=== PATIENT | female | born 1950 | race Caucasian/White ===

== ENCOUNTER 2016-06-14 23:23 | Inpatient (IN) | payer MEDICARE ==
[2016-06-14 23:53] VITALS: BP 154/87
[2016-06-15] MEDS ORDERED: Potassium Chloride 20 mEq ER Tab PO ONE (00:03)
[2016-06-15] MEDS ORDERED: Maalox 30 mL Cup PO PRN (00:03)
[2016-06-15] MEDS ORDERED: Albuterol Nebulizer 2.5mg/3mL IH PRN (00:03)
[2016-06-15] MEDS ORDERED: Hydrocodone/APAP 5mg/325mg Tab PO PRN (00:03)
[2016-06-15] MEDS: D5-0.45NS 1,000 ML IV SCH ×2 (00:48→20:55)
[2016-06-15] MEDS: Morphine Sulfate 2 mg/mL 1mL Syr IVP PRN ×3 (05:46→16:18)
[2016-06-15 05:58] LABS: % BASOPHILS 0.4 % (0.0-2.0); % EOSINOPHILS 1.7 % (0.0-5.0); % LYMPHOCYTES 16.9 % (20.0-50.0); % MONOCYTES 13.6 % (2.0-10.0); % NEUTROPHILS 67.4 % (40.0-80.0); HEMATOCRIT 42.1 % (35.0-45.0); HEMOGLOBIN 14.3 gm/dL (11.7-16.1); MEAN CELL VOLUME 85.3 fl (81-100); MEAN PLATELET VOLUME 7.3 fl; NEUTROPHILE ABSOLUTE 4.4 Th/cmm (1.8-8.0); PLATELET COUNT 151 Th/cmm (150-400); RED BLOOD COUNT 4.93 Mil/cmm (3.80-5.20); RED CELL DISTRIBUTION WIDTH 12.5 % (11.5-20.0); WHITE BLOOD COUNT 6.5 Th/cmm (4.8-10.8)
[2016-06-15 06:07] LABS: INR 1.02 (0.5-1.4); PROTHROMBIN TIME (TEST) 10.1 SECONDS (9.5-11.5)
[2016-06-15 06:11] LABS: ALB/GLOB RATIO 1.2 (1.0-1.8); ALKALINE PHOSPHATASE 132 U/L (34-104); ANION GAP 10.9 (7.0-16.0); BILIRUBIN,TOTAL 0.9 mg/dL (0.3-1.0); BUN - UREA NITROGEN 11 mg/dL (7-25); CALCIUM SERUM 9.8 mg/dL (8.6-10.3); CARBON DIOXIDE 26.1 mEq/L (21.0-31.0); CHLORIDE 101 mEq/L (98-107); CREATININE - SERUM 0.5 mg/dL (0.6-1.2); GLUCOSE 239 mg/dL (70-105); MAGNESIUM 1.9 mg/dL (1.9-2.7); SGOT 36 U/L (13-39); SGPT/ALT 42 U/L (7-52); SODIUM SERUM 134 mEq/L (136-145)
[2016-06-15 06:29] LABS: BNP 39.1 pg/mL (5.0-100.0)
[2016-06-15] MEDS: INSULIN ASPART, RECOMBINANT 100 UNITS/ML SUBQ SCH ×4 (06:44→20:46)
[2016-06-15 07:55] LABS: URINE BILIRUBIN NEGATIVE (NEGATIVE); URINE BLOOD NEGATIVE (NEGATIVE); URINE COLOR YELLOW; URINE GLUCOSE (UA) 100 mg/dL (NEGATIVE); URINE KETONE TRACE mg/dL (NEGATIVE); URINE PROTEIN 30 mg/dL (NEGATIVE)
[2016-06-15 07:58] LABS: URINE BACTERIA NONE SEEN /hpf (NONE SEEN); URINE EPITHELIAL CELLS FEW /lpf (FEW); URINE RBC NONE SEEN /hpf (0-5); URINE WBC 0-2 /hpf (0-5)
[2016-06-15] MEDS: Levothyroxine 0.112 Mg Tab PO SCH (09:41)
--- NOTE | 2016-06-15 10:59 | Diagnostic Imaging Report ---
History: Dyspnea Findings: Heart size normal. Aorta is tortuous. No infiltrates or effusions. No destructive lesions of bone. Impression: No acute disease.
--- NOTE | 2016-06-15 14:53 | Internal Medicine Prog Note ---
Internal Medicine Subjective - Subjective Service Date: 06/15/16 ([facility] [id number]) Internal Medicine Objective - Results Result Diagrams: 06/15/16 05:15 06/15/16 05:15 Recent Labs: Laboratory Last Values WBC 6.5 Th/cmm (4.8-10.8) 06/15/16 05:15 RBC 4.93 Mil/cmm (3.80-5.20) 06/15/16 05:15 Hgb 14.3 gm/dL (11.7-16.1) 06/15/16 05:15 Hct 42.1 % (35.0-45.0) 06/15/16 05:15 MCV 85.3 fl (81-100) 06/15/16 05:15 MCH 29.0 pg (27.0-31.0) 06/15/16 05:15 MCHC Differential 34.0 pg (28.0-36.0) 06/15/16 05:15 RDW 12.5 % (11.5-20.0) 06/15/16 05:15 Plt Count 151 Th/cmm (150-400) 06/15/16 05:15 MPV 7.3 fl 06/15/16 05:15 Neutrophils % 67.4 % (40.0-80.0) 06/15/16 05:15 Lymphocytes % 16.9 % (20.0-50.0) L 06/15/16 05:15 Monocytes % 13.6 % (2.0-10.0) H 06/15/16 05:15 Eosinophils % 1.7 % (0.0-5.0) 06/15/16 05:15 Basophils % 0.4 % (0.0-2.0) 06/15/16 05:15 PT 10.1 SECONDS (9.5-11.5) 06/15/16 05:15 INR 1.02 (0.5-1.4) 06/15/16 05:15 PTT (Actin FS) 22.3 SECONDS (26.0-38.0) L 06/15/16 05:15 Sodium 134 mEq/L (136-145) L 06/15/16 05:15 Potassium 4.0 mEq/L (3.5-5.1) 06/15/16 05:15 Chloride 101 mEq/L (98-107) 06/15/16 05:15 Carbon Dioxide 26.1 mEq/L (21.0-31.0) 06/15/16 05:15 Anion Gap 10.9 (7.0-16.0) 06/15/16 05:15 BUN 11 mg/dL (7-25) 06/15/16 05:15 Creatinine 0.5 mg/dL (0.6-1.2) L 06/15/16 05:15 Est GFR ( Amer) > 60.0 ml/min (>90) 06/15/16 05:15 Est GFR (Non-Af Amer) > 60.0 ml/min 06/15/16 05:15 BUN/Creatinine Ratio 22.0 06/15/16 05:15 Glucose 239 mg/dL (70-105) H 06/15/16 05:15 POC Glucose 250 MG/DL (70 - 105) H 06/15/16 11:41 Hemoglobin A1c % 8.2 % (4.0-6.0) H 06/15/16 05:15 Calcium 9.8 mg/dL (8.6-10.3) 06/15/16 05:15 Magnesium 1.9 mg/dL (1.9-2.7) 06/15/16 05:15 Total Bilirubin 0.9 mg/dL (0.3-1.0) 06/15/16 05:15 AST 36 U/L (13-39) 06/15/16 05:15 ALT 42 U/L (7-52) 06/15/16 05:15 Alkaline Phosphatase 132 U/L (34-104) H 06/15/16 05:15 B-Natriuretic Peptide 39.1 pg/mL (5.0-100.0) 06/15/16 05:15 Total Protein 7.6 gm/dL (6.0-8.3) 06/15/16 05:15 Albumin 4.2 gm/dL (3.7-5.3) 06/15/16 05:15 Globulin 3.4 gm/dL 06/15/16 05:15 Albumin/Globulin Ratio 1.2 (1.0-1.8) 06/15/16 05:15 TSH 4.72 uIU/ml (0.34-5.60) 06/15/16 05:15 Urine Source CLEAN C 06/15/16 05:50 Urine Color YELLOW 06/15/16 05:50 Urine Clarity SL. CLOUDY (CLEAR) 06/15/16 05:50 Urine pH 6.0 06/15/16 05:50 Ur Specific [place] 1.025 (1.005-1.030) 06/15/16 05:50 Urine Protein 30 mg/dL (NEGATIVE) H 06/15/16 05:50 Urine Glucose (UA) 100 mg/dL (NEGATIVE) H 06/15/16 05:50 Urine Ketones TRACE mg/dL (NEGATIVE) 06/15/16 05:50 Urine Blood NEGATIVE (NEGATIVE) 06/15/16 05:50 Urine Nitrate NEGATIVE (NEGATIVE) 06/15/16 05:50 Urine Bilirubin NEGATIVE (NEGATIVE) 06/15/16 05:50 Urine Urobilinogen 1.0 E.U./dL (0.2 - 1.0) 06/15/16 05:50 Ur Leukocyte Esterase NEGATIVE (NEGATIVE) 06/15/16 05:50 Urine RBC NONE SEEN /hpf (0-5) 06/15/16 05:50 Urine WBC 0-2 /hpf (0-5) 06/15/16 05:50 Ur Epithelial Cells FEW /lpf (FEW) 06/15/16 05:50 Urine Bacteria NONE SEEN /hpf (NONE SEEN) 06/15/16 05:50 - Physical Exam Vitals and I&O: Vital Signs Temp 97.9 F 06/15/16 03:43 Pulse 94 06/15/16 09:42 Resp 20 06/15/16 07:48 BP 165/91 06/15/16 09:42 Pulse Ox 99 06/15/16 07:48 Intake & Output 06/14/16 06/15/16 06/15/16 18:59 06:59 18:59 Weight (lbs) 160 lb 3.2 oz Active Medications: Current Medications Acetaminophen (Tylenol) 650 mg PO Q4HR PRN PRN Reason: Pain or Fever >101 Stop: 08/14/16 00:02 Acetaminophen/Hydrocodone Bitart ([place] 5mg/325mg) 1 tab PO Q4H PRN PRN Reason: Pain (Severe) Stop: 08/14/16 00:02 Al Hydrox/Mg Hydrox/Simethicone (Maalox) 30 ml PO Q6HR PRN PRN Reason: Constipation Stop: 08/14/16 00:02 Albuterol Sulfate (Albuterol 2.5mg/3ml Neb Ud) 2.5 mg IH Q2HR PRN PRN Reason: Shortness of Breath or Wheeze Stop: 08/14/16 00:02 Benazepril HCl (Lotensin) 10 mg PO DAILY [facility] Stop: 08/14/16 08:59 Last Admin: 06/15/16 09:42 Dose: 10 mg Clonidine HCl (Catapres) 0.1 mg PO Q6HR PRN PRN Reason: SBP GREATER THAN 160 Stop: 08/14/16 00:02 Heparin Sodium (Porcine) (Heparin) 5,000 units SUBQ Q12HR ARACELI Stop: 08/14/16 08:59 Last Admin: 06/15/16 09:42 Dose: 5,000 units Dextrose/Sodium Chloride (D5-0.45ns) 1,000 mls @ 50 mls/hr IV .Q20H [facility] Stop: 08/14/16 00:14 Last Admin: 06/15/16 00:48 Dose: 50 mls/hr Insulin Aspart (Novolog) 0 units SUBQ ACHS ARACELI PRN Reason: Protocol Stop: 08/14/16 07:29 Last Admin: 06/15/16 12:46 Dose: 2 units Levothyroxine Sodium (Synthroid) 0.112 mg PO DAILY [facility] Stop: 08/14/16 08:59 Last Admin: 06/15/16 09:41 Dose: 0.112 mg Metformin HCl (Glucophage) 1,000 mg PO DAILY [facility] Stop: 08/14/16 08:59 Last Admin: 06/15/16 09:44 Dose: 1,000 mg Morphine Sulfate (Morphine) 2 mg IVP Q4HR PRN PRN Reason: Pain (Severe) Stop: 08/14/16 00:02 Last Admin: 06/15/16 11:37 Dose: 2 mg Ondansetron HCl (Zofran) 4 mg IV Q8H PRN PRN Reason: Nausea / Vomiting Stop: 08/14/16 00:02 Zolpidem Tartrate (Ambien) 10 mg PO HS PRN PRN Reason: Insomnia Stop: 08/14/16 00:02 Internal Medicine Assmt/Plan - Assessment Assessment: HIP FRACTURE HTN DM-2 MORBID OBESITY
--- NOTE | 2016-06-15 16:52 | History & Physical ---
CHIEF COMPLAINT: Status post fall. HISTORY OF PRESENT ILLNESS: This is a 66-year-old female who is a direct admission from [facility]. According to the daughter at bedside, the patient was just reaching over the able to grab something and the patient suddenly slipped and fell on her hip. According to the daughter, the patient has been complaining of left hip pain during this week. The patient was recently at [facility] ER on June 10 due to left hip pain. The patient was prescribed tramadol p.o. X-rays were taken and there is no fracture. Also according to the daughter, the patient has been in breast cancer remission for 8 years and she stated that the [facility] doctor explained to her that may be questionable bone cancer. Due to insurance purposes, the patient is now here at [facility]. The patient denied any dizziness prior to the fall or any chest pain. PAST MEDICAL HISTORY: Stage IV breast cancer, type 2 diabetes and hypertension. PAST SURGICAL HISTORY: Right mastectomy, ____, and cholecystectomy. _MEDICATIONS: Please see medication reconciliation sheet. ALLERGIES: ASPIRIN AND TYLENOL. SOCIAL HISTORY: The patient resides at home with her family. Denies any smoking, drinking any illicit drug usage. REVIEW OF SYSTEMS: GENERAL: Denies any fevers, any chills. CARDIOVASCULAR: Denies any chest pain. RESPIRATORY: Denies any shortness of breath. GASTROINTESTINAL: Denies any nausea, vomiting, abdominal pain. GENITOURINARY: She denies any dysuria. EXTREMITIES: Right hip pain. All other systems are reviewed by me and are negative. PHYSICAL EXAMINATION: GENERAL: The patient is well developed, well nourished no apparent distress. VITAL SIGNS: Temperature 97.9, heart rate 85, blood pressure 135/90, respirations 19, O2 96%. HEENT: Head; normocephalic, atraumatic. NECK: Supple. No mass. LUNGS: Clear bilaterally upon auscultation. HEART: Regular rhythm. No murmurs or gallops. SKIN: Intact, warm and dry to touch. ABDOMEN: Soft, nontender, nondistended. Positive bowel sounds in all 4 quadrants. ASSESSMENT: Hip fracture, hypertension, diabetes, morbid obesity. PLAN: The patient will be admitted to the med/surg unit. The patient is to have a consultation with Dr. Leonardo, pain management. We will continue to monitor the patient. JOB# [id number]
[2016-06-15] MEDS ORDERED: HYDROmorphone 1 mg/mL 1mL Syr IVP PRN (17:34)
--- NOTE | 2016-06-15 21:36 | Admit Criteria Form ---
Admit Criteria Forms - Admit Criteria Diagnosis: MUSCULOSKELETAL DISEASE [facility] Clinical Indications for Admission to Inpatient Care (Place 'X' for any and all applicable criteria): Hospital admission is needed for appropriate care of the patient because of ANY ONE of the following: [X ]I. Fracture, dislocation, or other musculoskeletal injury requiring inpatient care(medical) as indicated by ANY ONE of the following(4)(5)(6)(7) [ ]a) Vertebral fracture requiring observation for instability or neurologic compromise (8) [ ]b) Compartment syndrome (proven or cannot be ruled out during observation level of care) (9) [ ]c) Limb-threatening injury [ ]d) Major injury requiring inpatient stabilization such as traction initiation or external fixation before internal fixation or closure of complex or open fracture [ ]e) Major injury requiring inpatient treatment after emergency or observation level care (as appropriate) [ X]f) Severe pain requiring acute inpatient management [ ]II. Newly diagnosed or suspected bone, joint, or orthopedic device infection (e.g., osteomyelitis, septic arthritis) needing ANY ONE of the following(1)(2)(3) [ ]a) IV antibiotics that cannot be initiated in other than inpatient setting (e.g., patient too unstable or home infusion not available) [ ]b) Device removal or replacement [ ]c) Bone or soft tissue debridement [ ]d) Joint drainage (drain placement or repetitive aspirations) [ ]III. Severe rheumatologic disease (e.g., systemic lupus erythematosus, rheumatoid arthritis) with complications or comorbidities (Also use Optimal Recovery Care Criteria or General Recovery Criteria as appropriate on the basis of predominant condition), including ANY ONE of the following(10 )(11)(12)(13) [ ]a) Severe infection (e.g., FORMAL WAITER/WAITRESS infection, sepsis) (14) [ ]b) Respiratory complications, including ANY ONE of the following: [ ]i) Pleural effusion with respiratory compromise [ ]ii) Pulmonary hypertension with congestive failure [ ]iii) Respiratory failure [ ]iv) Pulmonary hemorrhage (15) [ ]c) Hematologic disease, including ANY ONE of the following: [ ]i) Coagulopathy with bleeding [ ]ii) Thrombosis with hypercoagulable state [ ]iii) Thrombotic thrombocytopenic purpura [ ]d) Cerebritis with seizures, psychosis, or other severe abnormalities [ ]e) Vertebral destruction with monitoring needed for cervical myelopathy& possible respiratory compromise [ ]f) Exacerbation that requires inpatient treatment (e.g., intravenous immunosuppression) (16) [ ]g) Acute renal failure [ ]IV. Severe vasculitis with complications or comorbidities (Also use Optimal Recovery Care Criteria or General Recovery Criteria as appropriate on the basis of predominant condition), including ANY ONE of the following(11)(12)(17)(18)(19)(20) [ ]a) FORMAL WAITER/WAITRESS vasculitis with seizures, psychosis, or other severe abnormalities (22) [ ]b) Renal failure (16) [ ]c) Pulmonary hemorrhage (15) [ ]d) Cerebral infarction [ ]e) Gastrointestinal ischemia [ ]f) Gangrene or threatened amputation [ ]g) Exacerbation that requires inpatient treatment (e.g., intravenous immunosuppression) (19)(21) [ ]V. Severe myopathy as indicated by ANY ONE of the following (28)(29) [ ]a) New onset of airway compromise or inability to swallow [ ]b) Respiratory deterioration with observation needed for impending respiratory failure [ ]c) Exacerbation that requires inpatient treatment (e.g., intravenous immunosuppression) [ ]. Severe gout (crystal arthropathy) as indicated by ANY ONE of the following (23)(24) [ ]a) Severe pain requiring acute inpatient management [ ]b) Exacerbation that requires inpatient treatment (e.g., intravenous treatment) [ ]VII.Rhabdomyolysis and ANY ONE of the following (25)(26)(27) [ ]a) Acute renal failure [ ]b) Need for intravenous hydration after emergency or observation level care (as appropriate) [ ]c) Inability to maintain oral hydration [ ]d) Change in mental status [ ]e) Electrolyte abnormality that remains after emergency or observation level care (as appropriate) [ ]VIII Post amputation complication, as indicated by ANY ONE of the following [ ]a) Infection [ ]b) Dehiscence [ ]c) Myodesis failure [ ]IX. Severe pain requiring acute inpatient management as indicated by ALL of the following (30)(31)(32) [ ]a) Continuous or frequent (e.g., every 2 to 4 hrs) parenteral analgesics required [A] [ ]b) Rapid improvement expected from treatment or acute intervention ( e.g., surgery, anesthesia procedure[B] [ ]X. Musculoskeletal Disease and ALL of the following: [ ]a) Symptom or finding for which emergency and observation care have failed or are not considered appropriate (Use General Criteria: Observation Care as appropriate) [ ]b) Presence of ANY ONE of the following [ ]i) A General Admission Criteria [ ]ii) A Pediatric General Admission Criteria The original [facility] content created by [facility] has been revised. The portions of the content which have been revised are identified through the use of italic text or in bold, and [facility] has neither reviewed nor approved the modified material. All other unmodified content is copyright [facility]. Please see references footnoted in the original [facility] edition 2016 Admit Criteria Met?: Yes
--- NOTE | 2016-06-15 21:54 | Internal Medicine Prog Note ---
Internal Medicine Objective - Results Result Diagrams: 06/15/16 05:15 06/15/16 05:15 Recent Labs: Laboratory Last Values WBC 6.5 Th/cmm (4.8-10.8) 06/15/16 05:15 RBC 4.93 Mil/cmm (3.80-5.20) 06/15/16 05:15 Hgb 14.3 gm/dL (11.7-16.1) 06/15/16 05:15 Hct 42.1 % (35.0-45.0) 06/15/16 05:15 MCV 85.3 fl (81-100) 06/15/16 05:15 MCH 29.0 pg (27.0-31.0) 06/15/16 05:15 MCHC Differential 34.0 pg (28.0-36.0) 06/15/16 05:15 RDW 12.5 % (11.5-20.0) 06/15/16 05:15 Plt Count 151 Th/cmm (150-400) 06/15/16 05:15 MPV 7.3 fl 06/15/16 05:15 Neutrophils % 67.4 % (40.0-80.0) 06/15/16 05:15 Lymphocytes % 16.9 % (20.0-50.0) L 06/15/16 05:15 Monocytes % 13.6 % (2.0-10.0) H 06/15/16 05:15 Eosinophils % 1.7 % (0.0-5.0) 06/15/16 05:15 Basophils % 0.4 % (0.0-2.0) 06/15/16 05:15 PT 10.1 SECONDS (9.5-11.5) 06/15/16 05:15 INR 1.02 (0.5-1.4) 06/15/16 05:15 PTT (Actin FS) 22.3 SECONDS (26.0-38.0) L 06/15/16 05:15 Sodium 134 mEq/L (136-145) L 06/15/16 05:15 Potassium 4.0 mEq/L (3.5-5.1) 06/15/16 05:15 Chloride 101 mEq/L (98-107) 06/15/16 05:15 Carbon Dioxide 26.1 mEq/L (21.0-31.0) 06/15/16 05:15 Anion Gap 10.9 (7.0-16.0) 06/15/16 05:15 BUN 11 mg/dL (7-25) 06/15/16 05:15 Creatinine 0.5 mg/dL (0.6-1.2) L 06/15/16 05:15 Est GFR ( Amer) > 60.0 ml/min (>90) 06/15/16 05:15 Est GFR (Non-Af Amer) > 60.0 ml/min 06/15/16 05:15 BUN/Creatinine Ratio 22.0 06/15/16 05:15 Glucose 239 mg/dL (70-105) H 06/15/16 05:15 POC Glucose 299 MG/DL (70 - 105) H 06/15/16 20:43 Hemoglobin A1c % 8.2 % (4.0-6.0) H 06/15/16 05:15 Calcium 9.8 mg/dL (8.6-10.3) 06/15/16 05:15 Magnesium 1.9 mg/dL (1.9-2.7) 06/15/16 05:15 Total Bilirubin 0.9 mg/dL (0.3-1.0) 06/15/16 05:15 AST 36 U/L (13-39) 06/15/16 05:15 ALT 42 U/L (7-52) 06/15/16 05:15 Alkaline Phosphatase 132 U/L (34-104) H 06/15/16 05:15 B-Natriuretic Peptide 39.1 pg/mL (5.0-100.0) 06/15/16 05:15 Total Protein 7.6 gm/dL (6.0-8.3) 06/15/16 05:15 Albumin 4.2 gm/dL (3.7-5.3) 06/15/16 05:15 Globulin 3.4 gm/dL 06/15/16 05:15 Albumin/Globulin Ratio 1.2 (1.0-1.8) 06/15/16 05:15 TSH 4.72 uIU/ml (0.34-5.60) 06/15/16 05:15 Urine Source CLEAN C 06/15/16 05:50 Urine Color YELLOW 06/15/16 05:50 Urine Clarity SL. CLOUDY (CLEAR) 06/15/16 05:50 Urine pH 6.0 06/15/16 05:50 Ur Specific [place] 1.025 (1.005-1.030) 06/15/16 05:50 Urine Protein 30 mg/dL (NEGATIVE) H 06/15/16 05:50 Urine Glucose (UA) 100 mg/dL (NEGATIVE) H 06/15/16 05:50 Urine Ketones TRACE mg/dL (NEGATIVE) 06/15/16 05:50 Urine Blood NEGATIVE (NEGATIVE) 06/15/16 05:50 Urine Nitrate NEGATIVE (NEGATIVE) 06/15/16 05:50 Urine Bilirubin NEGATIVE (NEGATIVE) 06/15/16 05:50 Urine Urobilinogen 1.0 E.U./dL (0.2 - 1.0) 06/15/16 05:50 Ur Leukocyte Esterase NEGATIVE (NEGATIVE) 06/15/16 05:50 Urine RBC NONE SEEN /hpf (0-5) 06/15/16 05:50 Urine WBC 0-2 /hpf (0-5) 06/15/16 05:50 Ur Epithelial Cells FEW /lpf (FEW) 06/15/16 05:50 Urine Bacteria NONE SEEN /hpf (NONE SEEN) 06/15/16 05:50 - Physical Exam Vitals and I&O: Vital Signs Temp 98.9 F 06/15/16 20:00 Pulse 94 06/15/16 21:00 Resp 20 06/15/16 21:00 BP 149/88 06/15/16 20:00 Pulse Ox 96 06/15/16 21:00 Intake & Output 06/15/16 06/15/16 06/16/16 06:59 18:59 06:59 Intake Total 600 1000 Output Total 400 Balance 200 1000 Weight (lbs) 72.665 kg Intake: Intake, IV Amount 1000 D5-0.45NS 1,000 ml @ 50 1000 mls/hr IV .Q20H ARACELI Rx#: [id number] Oral 600 Output: Urine 400 Other: # Voids 2 # Bowel Movements 0 Active Medications: Current Medications Acetaminophen (Tylenol) 325 mg PO Q4H PRN PRN Reason: PAIN & FEVER >101 Stop: 08/14/16 17:12 Acetaminophen/Hydrocodone Bitart ([place] 5mg/325mg) 1 tab PO Q4H PRN PRN Reason: Pain (Severe) Stop: 08/14/16 00:02 Al Hydrox/Mg Hydrox/Simethicone (Maalox) 30 ml PO Q6HR PRN PRN Reason: Constipation Stop: 08/14/16 00:02 Albuterol Sulfate (Albuterol 2.5mg/3ml Neb Ud) 2.5 mg IH Q2HR PRN PRN Reason: Shortness of Breath or Wheeze Stop: 08/14/16 00:02 Benazepril HCl (Lotensin) 10 mg PO DAILY [facility] Stop: 08/14/16 08:59 Last Admin: 06/15/16 09:42 Dose: 10 mg Clonidine HCl (Catapres) 0.1 mg PO Q6HR PRN PRN Reason: SBP GREATER THAN 160 Stop: 08/14/16 00:02 Heparin Sodium (Porcine) (Heparin) 5,000 units SUBQ Q12HR [facility] Stop: 08/14/16 08:59 Last Admin: 06/15/16 20:47 Dose: 5,000 units Hydromorphone HCl (Dilaudid) 1 mg IVP Q4HR PRN PRN Reason: breakthrough pain Stop: 08/14/16 17:33 Dextrose/Sodium Chloride (D5-0.45ns) 1,000 mls @ 50 mls/hr IV .Q20H [facility] Stop: 08/14/16 00:14 Last Admin: 06/15/16 20:55 Dose: 50 mls/hr Insulin Aspart (Novolog) 0 units SUBQ ACHS ARACELI PRN Reason: Protocol Stop: 08/14/16 07:29 Last Admin: 06/15/16 20:46 Dose: 4 units Levothyroxine Sodium (Synthroid) 0.112 mg PO DAILY [facility] Stop: 08/14/16 08:59 Last Admin: 06/15/16 09:41 Dose: 0.112 mg Metformin HCl (Glucophage) 1,000 mg PO DAILY [facility] Stop: 08/14/16 08:59 Last Admin: 06/15/16 09:44 Dose: 1,000 mg Morphine Sulfate (Morphine) 2 mg IVP Q2H PRN PRN Reason: Pain (Severe) Stop: 08/14/16 16:27 Ondansetron HCl (Zofran) 4 mg IV Q8H PRN PRN Reason: Nausea / Vomiting Stop: 08/14/16 00:02 Zolpidem Tartrate (Ambien) 10 mg PO HS PRN PRN Reason: Insomnia Stop: 08/14/16 00:02 Internal Medicine Assmt/Plan - Assessment Assessment: l interthrochanteric fx - Plan Plan: spoke at [facility] with son at 530 pm, not happy waiting for home care consultant, wanted to transfer pt out but decided to stay for now pt with h\o breast ca 2008 s\p mastectomy,xrt and chemo, was seen at [facility] er 2 to lle pain, dc to [facility] pmd, xray did not show fracture on 06-10-16. presented to [facility] on 06-14 with l hip fx, nonmenber hence transferred out apparently dr dozier showed up tonight to see pt but hesitant to get involved because of family's behavior-refused consult dr way to see tomorrow
[2016-06-16] MEDS: HYDROmorphone 1 mg/mL 1mL Syr IVP PRN (02:34)
[2016-06-16] MEDS: Sodium Chloride 0.45% 1,000 ML IV SCH (02:37)
[2016-06-16 06:25] LABS: % EOSINOPHILS 1.4 % (0.0-5.0); % LYMPHOCYTES 16.4 % (20.0-50.0); % MONOCYTES 10.5 % (2.0-10.0); % NEUTROPHILS 70.7 % (40.0-80.0); HEMATOCRIT 39.5 % (35.0-45.0); HEMOGLOBIN 13.6 gm/dL (11.7-16.1); MEAN CELL VOLUME 86.1 fl (81-100); MEAN CORPUSCULAR HEMOGLOBIN 29.7 pg (27.0-31.0); MEAN CORPUSCULAR HGB CONC 34.5 pg (28.0-36.0); MEAN PLATELET VOLUME 7.1 fl; NEUTROPHILE ABSOLUTE 5.7 Th/cmm (1.8-8.0); PLATELET COUNT 163 Th/cmm (150-400); RED BLOOD COUNT 4.58 Mil/cmm (3.80-5.20); RED CELL DISTRIBUTION WIDTH 12.6 % (11.5-20.0)
[2016-06-16] MEDS: INSULIN ASPART, RECOMBINANT 100 UNITS/ML SUBQ SCH ×4 (06:37→22:11)
[2016-06-16 07:04] LABS: ANION GAP 11.6 (7.0-16.0); BUN - UREA NITROGEN 12 mg/dL (7-25); CALCIUM SERUM 9.4 mg/dL (8.6-10.3); CARBON DIOXIDE 22.1 mEq/L (21.0-31.0); CHLORIDE 101 mEq/L (98-107); CREATININE - SERUM 0.5 mg/dL (0.6-1.2); GLUCOSE 241 mg/dL (70-105); POTASSIUM SERUM 3.7 mEq/L (3.5-5.1); SODIUM SERUM 131 mEq/L (136-145)
[2016-06-16] MEDS: Morphine Sulfate 2 mg/mL 1mL Syr IVP PRN ×2 (08:07→18:10)
[2016-06-16] MEDS: Levothyroxine 0.112 Mg Tab PO SCH (09:19)
--- NOTE | 2016-06-16 19:56 | Internal Medicine Prog Note ---
Internal Medicine Subjective - Subjective Patient seen and examined:: with staff, chart reviewed, other (family at bedside , pain under control) Patient is:: awake, verbal, interactive, talking, denies SOB Per staff patient is:: no adverse event Internal Medicine Objective - Results Result Diagrams: 06/16/16 05:51 06/16/16 05:51 Recent Labs: Laboratory Last Values WBC 8.0 Th/cmm (4.8-10.8) D 06/16/16 05:51 RBC 4.58 Mil/cmm (3.80-5.20) 06/16/16 05:51 Hgb 13.6 gm/dL (11.7-16.1) 06/16/16 05:51 Hct 39.5 % (35.0-45.0) 06/16/16 05:51 MCV 86.1 fl (81-100) 06/16/16 05:51 MCH 29.7 pg (27.0-31.0) 06/16/16 05:51 MCHC Differential 34.5 pg (28.0-36.0) 06/16/16 05:51 RDW 12.6 % (11.5-20.0) 06/16/16 05:51 Plt Count 163 Th/cmm (150-400) 06/16/16 05:51 MPV 7.1 fl 06/16/16 05:51 Neutrophils % 70.7 % (40.0-80.0) 06/16/16 05:51 Lymphocytes % 16.4 % (20.0-50.0) L 06/16/16 05:51 Monocytes % 10.5 % (2.0-10.0) H 06/16/16 05:51 Eosinophils % 1.4 % (0.0-5.0) 06/16/16 05:51 Basophils % 1.0 % (0.0-2.0) 06/16/16 05:51 PT 10.1 SECONDS (9.5-11.5) 06/15/16 05:15 INR 1.02 (0.5-1.4) 06/15/16 05:15 PTT (Actin FS) 22.3 SECONDS (26.0-38.0) L 06/15/16 05:15 Sodium 131 mEq/L (136-145) L 06/16/16 05:51 Potassium 3.7 mEq/L (3.5-5.1) 06/16/16 05:51 Chloride 101 mEq/L (98-107) 06/16/16 05:51 Carbon Dioxide 22.1 mEq/L (21.0-31.0) 06/16/16 05:51 Anion Gap 11.6 (7.0-16.0) 06/16/16 05:51 BUN 12 mg/dL (7-25) 06/16/16 05:51 Creatinine 0.5 mg/dL (0.6-1.2) L 06/16/16 05:51 Est GFR ( Amer) > 60.0 ml/min (>90) 06/16/16 05:51 Est GFR (Non-Af Amer) > 60.0 ml/min 06/16/16 05:51 BUN/Creatinine Ratio 24.0 06/16/16 05:51 Glucose 241 mg/dL (70-105) H 06/16/16 05:51 POC Glucose 173 MG/DL (70 - 105) H 06/16/16 17:19 Hemoglobin A1c % 8.2 % (4.0-6.0) H 06/15/16 05:15 Calcium 9.4 mg/dL (8.6-10.3) 06/16/16 05:51 Magnesium 1.9 mg/dL (1.9-2.7) 06/15/16 05:15 Total Bilirubin 0.9 mg/dL (0.3-1.0) 06/15/16 05:15 AST 36 U/L (13-39) 06/15/16 05:15 ALT 42 U/L (7-52) 06/15/16 05:15 Alkaline Phosphatase 132 U/L (34-104) H 06/15/16 05:15 B-Natriuretic Peptide 39.1 pg/mL (5.0-100.0) 06/15/16 05:15 Total Protein 7.6 gm/dL (6.0-8.3) 06/15/16 05:15 Albumin 4.2 gm/dL (3.7-5.3) 06/15/16 05:15 Globulin 3.4 gm/dL 06/15/16 05:15 Albumin/Globulin Ratio 1.2 (1.0-1.8) 06/15/16 05:15 TSH 4.72 uIU/ml (0.34-5.60) 06/15/16 05:15 Urine Source CLEAN C 06/15/16 05:50 Urine Color YELLOW 06/15/16 05:50 Urine Clarity SL. CLOUDY (CLEAR) 06/15/16 05:50 Urine pH 6.0 06/15/16 05:50 Ur Specific [place] 1.025 (1.005-1.030) 06/15/16 05:50 Urine Protein 30 mg/dL (NEGATIVE) H 06/15/16 05:50 Urine Glucose (UA) 100 mg/dL (NEGATIVE) H 06/15/16 05:50 Urine Ketones TRACE mg/dL (NEGATIVE) 06/15/16 05:50 Urine Blood NEGATIVE (NEGATIVE) 06/15/16 05:50 Urine Nitrate NEGATIVE (NEGATIVE) 06/15/16 05:50 Urine Bilirubin NEGATIVE (NEGATIVE) 06/15/16 05:50 Urine Urobilinogen 1.0 E.U./dL (0.2 - 1.0) 06/15/16 05:50 Ur Leukocyte Esterase NEGATIVE (NEGATIVE) 06/15/16 05:50 Urine RBC NONE SEEN /hpf (0-5) 06/15/16 05:50 Urine WBC 0-2 /hpf (0-5) 06/15/16 05:50 Ur Epithelial Cells FEW /lpf (FEW) 06/15/16 05:50 Urine Bacteria NONE SEEN /hpf (NONE SEEN) 06/15/16 05:50 - Physical Exam Vitals and I&O: Vital Signs Temp 99.4 F 06/16/16 16:00 Pulse 87 06/16/16 16:00 Resp 18 06/16/16 16:00 BP 145/81 06/16/16 16:00 Pulse Ox 98 06/16/16 16:00 Intake & Output 06/16/16 06/16/16 06/17/16 06:59 18:59 06:59 Intake Total 1000 400 Output Total 600 Balance 1000 -200 Intake: Intake, IV Amount 1000 D5-0.45NS 1,000 ml @ 50 1000 mls/hr IV .Q20H [facility] Rx#: [id number] Oral 400 Output: Urine 600 Other: # Bowel Movements 0 Active Medications: Current Medications Acetaminophen (Tylenol) 325 mg PO Q4H PRN PRN Reason: PAIN & FEVER >101 Stop: 08/14/16 17:12 Acetaminophen/Hydrocodone Bitart ([place] 5mg/325mg) 1 tab PO Q4H PRN PRN Reason: Pain (Severe) Stop: 08/14/16 00:02 Al Hydrox/Mg Hydrox/Simethicone (Maalox) 30 ml PO Q6HR PRN PRN Reason: Constipation Stop: 08/14/16 00:02 Albuterol Sulfate (Albuterol 2.5mg/3ml Neb Ud) 2.5 mg IH Q2HR PRN PRN Reason: Shortness of Breath or Wheeze Stop: 08/14/16 00:02 Benazepril HCl (Lotensin) 10 mg PO DAILY [facility] Stop: 08/14/16 08:59 Last Admin: 06/16/16 09:19 Dose: 10 mg Clonidine HCl (Catapres) 0.1 mg PO Q6HR PRN PRN Reason: SBP GREATER THAN 160 Stop: 08/14/16 00:02 Hydromorphone HCl (Dilaudid) 1 mg IVP Q4HR PRN PRN Reason: breakthrough pain Stop: 08/14/16 17:33 Last Admin: 06/16/16 02:34 Dose: 1 mg Sodium Chloride (Nacl 0.45%) 1,000 mls @ 60 mls/hr IV .[id number] [facility] Stop: 08/14/16 21:59 Last Admin: 06/16/16 02:37 Dose: 60 mls/hr Insulin Aspart (Novolog) 0 units SUBQ ACHS [facility] PRN Reason: Protocol Stop: 08/14/16 07:29 Last Admin: 06/16/16 17:24 Dose: Not Given Levothyroxine Sodium (Synthroid) 0.112 mg PO DAILY [facility] Stop: 08/14/16 08:59 Last Admin: 06/16/16 09:19 Dose: 0.112 mg Metformin HCl (Glucophage) 1,000 mg PO DAILY [facility] Stop: 08/14/16 08:59 Last Admin: 06/16/16 09:19 Dose: 1,000 mg Morphine Sulfate (Morphine) 2 mg IVP Q2H PRN PRN Reason: Pain (Severe) Stop: 08/14/16 16:27 Last Admin: 06/16/16 18:10 Dose: 2 mg Ondansetron HCl (Zofran) 4 mg IV Q8H PRN PRN Reason: Nausea / Vomiting Stop: 08/14/16 00:02 Zolpidem Tartrate (Ambien) 10 mg PO HS PRN PRN Reason: Insomnia Stop: 08/14/16 00:02 General: alert, obese HEENT: NC/AT, PERRLA Neck: Supple, No JVD Lungs: CTAB Cardiovascular: RRR, Normal S1, Normal S2 Abdomen: soft non-tender, globular, positive bowel sound Extremities: ecchymosis Neurological: no change Internal Medicine Assmt/Plan - Assessment Assessment: l interthrochanteric fx HTN DM-2 MORBID OBESITY - Plan Plan: --spoke at [facility] with son at 530 pm, not happy waiting for consultant education, wanted to transfer pt out but decided to stay for now pt with h\o breast ca 2007 s\p mastectomy,xrt and chemo, was seen at [facility] er 2 to lle pain, dc to u w pmd, xray did not show fracture on 06-10-16. presented to [facility] on 06-14 with l hip fx, nonmenber hence transferred out apparently dr dozier showed up tonight to see pt but hesitant to get involved because of family's behavior-refused consult dr way to see tomorrow 06-16-16--cont on ivh pain control dvt prophylaxis dw dr way will confer with dr heidi recio son lida and daughter, more agreeable almita rn
[2016-06-16 23:27] LABS: URINE BILIRUBIN NEGATIVE (NEGATIVE); URINE COLOR YELLOW; URINE GLUCOSE (UA) 100 mg/dL (NEGATIVE); URINE KETONE NEGATIVE (NEGATIVE)
[2016-06-16 23:28] LABS: URINE BLOOD TRACE (NEGATIVE); URINE PH 6.5; URINE PROTEIN NEGATIVE (NEGATIVE); URINE UROBILINOGEN 0.2 E.U./dL (0.2 - 1.0)
[2016-06-17] MEDS ORDERED: Magnesium Hydroxide (MOM) 30 mL UDC PO PRN (00:38)
[2016-06-17] MEDS: Sodium Chloride 0.45% 1,000 ML IV SCH (03:04)
[2016-06-17 06:09] LABS: % EOSINOPHILS 2.3 % (0.0-5.0); % LYMPHOCYTES 20.4 % (20.0-50.0); % MONOCYTES 9.8 % (2.0-10.0); % NEUTROPHILS 67.5 % (40.0-80.0); HEMATOCRIT 37.8 % (35.0-45.0); MEAN CELL VOLUME 85.4 fl (81-100); MEAN CORPUSCULAR HEMOGLOBIN 29.4 pg (27.0-31.0); MEAN CORPUSCULAR HGB CONC 34.4 pg (28.0-36.0); NEUTROPHILE ABSOLUTE 4.9 Th/cmm (1.8-8.0); PLATELET COUNT 151 Th/cmm (150-400); RED BLOOD COUNT 4.43 Mil/cmm (3.80-5.20); RED CELL DISTRIBUTION WIDTH 12.4 % (11.5-20.0); WHITE BLOOD COUNT 7.3 Th/cmm (4.8-10.8)
[2016-06-17 06:47] LABS: ANION GAP 7.1 (7.0-16.0); BUN - UREA NITROGEN 10 mg/dL (7-25); CALCIUM SERUM 9.7 mg/dL (8.6-10.3); CARBON DIOXIDE 24.8 mEq/L (21.0-31.0); CHLORIDE 105 mEq/L (98-107); CREATININE - SERUM 0.4 mg/dL (0.6-1.2); GLUCOSE 182 mg/dL (70-105); POTASSIUM SERUM 3.9 mEq/L (3.5-5.1); SODIUM SERUM 133 mEq/L (136-145)
[2016-06-17 06:55] LABS: INR 1.12 (0.5-1.4); PROTHROMBIN TIME (TEST) 11.2 SECONDS (9.5-11.5)
[2016-06-17] MEDS: Levothyroxine 0.112 Mg Tab PO SCH (08:22)
[2016-06-17] MEDS: Morphine Sulfate 2 mg/mL 1mL Syr IVP PRN ×3 (08:22→17:40)
[2016-06-17] MEDS: HYDROmorphone 1 mg/mL 1mL Syr IVP PRN ×2 (09:42→16:38)
[2016-06-17 11:55] LABS: ALB/GLOB RATIO 1.2 (1.0-1.8); BILIRUBIN,DIRECT 0.24 mg/dL (0.0-0.2); BILIRUBIN,TOTAL 0.9 mg/dL (0.3-1.0)
[2016-06-17] MEDS: INSULIN ASPART, RECOMBINANT 100 UNITS/ML SUBQ SCH ×2 (11:57→16:51)
[2016-06-17] MEDS ORDERED: D5-0.9%NS 1,000 ML IV SCH ×2 (12:00→13:20)
--- NOTE | 2016-06-17 12:00 | Internal Medicine Prog Note ---
Internal Medicine Subjective - Subjective Service Date: 06/17/16 (awake, alert, son at bedside, per test case developer, [facility] has no bed available at contracted facility, patient to have surgery today at 5pm) Patient seen and examined:: with staff Patient is:: awake Per staff patient is:: no adverse event Internal Medicine Objective - Results Result Diagrams: 06/17/16 05:58 06/17/16 05:58 Recent Labs: Laboratory Last Values WBC 7.3 Th/cmm (4.8-10.8) 06/17/16 05:58 RBC 4.43 Mil/cmm (3.80-5.20) 06/17/16 05:58 Hgb 13.0 gm/dL (11.7-16.1) 06/17/16 05:58 Hct 37.8 % (35.0-45.0) 06/17/16 05:58 MCV 85.4 fl (81-100) 06/17/16 05:58 MCH 29.4 pg (27.0-31.0) 06/17/16 05:58 MCHC Differential 34.4 pg (28.0-36.0) 06/17/16 05:58 RDW 12.4 % (11.5-20.0) 06/17/16 05:58 Plt Count 151 Th/cmm (150-400) 06/17/16 05:58 MPV 7.0 fl 06/17/16 05:58 Neutrophils % 67.5 % (40.0-80.0) 06/17/16 05:58 Lymphocytes % 20.4 % (20.0-50.0) 06/17/16 05:58 Monocytes % 9.8 % (2.0-10.0) 06/17/16 05:58 Eosinophils % 2.3 % (0.0-5.0) 06/17/16 05:58 Basophils % 0.0 % (0.0-2.0) 06/17/16 05:58 PT 11.2 SECONDS (9.5-11.5) 06/17/16 05:58 INR 1.12 (0.5-1.4) 06/17/16 05:58 PTT (Actin FS) 24.4 SECONDS (26.0-38.0) L 06/17/16 05:58 Sodium 133 mEq/L (136-145) L 06/17/16 05:58 Potassium 3.9 mEq/L (3.5-5.1) 06/17/16 05:58 Chloride 105 mEq/L (98-107) 06/17/16 05:58 Carbon Dioxide 24.8 mEq/L (21.0-31.0) 06/17/16 05:58 Anion Gap 7.1 (7.0-16.0) 06/17/16 05:58 BUN 10 mg/dL (7-25) 06/17/16 05:58 Creatinine 0.4 mg/dL (0.6-1.2) L 06/17/16 05:58 Est GFR ( Amer) > 60.0 ml/min (>90) 06/17/16 05:58 Est GFR (Non-Af Amer) > 60.0 ml/min 06/17/16 05:58 BUN/Creatinine Ratio 25.0 06/17/16 05:58 Glucose 182 mg/dL (70-105) H 06/17/16 05:58 POC Glucose 232 MG/DL (70 - 105) H 06/17/16 11:46 Hemoglobin A1c % 8.2 % (4.0-6.0) H 06/15/16 05:15 Calcium 9.7 mg/dL (8.6-10.3) 06/17/16 05:58 Magnesium 1.9 mg/dL (1.9-2.7) 06/15/16 05:15 Total Bilirubin 0.9 mg/dL (0.3-1.0) 06/15/16 05:15 AST 36 U/L (13-39) 06/15/16 05:15 ALT 42 U/L (7-52) 06/15/16 05:15 Alkaline Phosphatase 132 U/L (34-104) H 06/15/16 05:15 B-Natriuretic Peptide 39.1 pg/mL (5.0-100.0) 06/15/16 05:15 Total Protein 7.6 gm/dL (6.0-8.3) 06/15/16 05:15 Albumin 4.2 gm/dL (3.7-5.3) 06/15/16 05:15 Globulin 3.4 gm/dL 06/15/16 05:15 Albumin/Globulin Ratio 1.2 (1.0-1.8) 06/15/16 05:15 TSH 4.72 uIU/ml (0.34-5.60) 06/15/16 05:15 Urine Source CATH 06/16/16 22:40 Urine Color YELLOW 06/16/16 22:40 Urine Clarity CLEAR (CLEAR) 06/16/16 22:40 Urine pH 6.5 06/16/16 22:40 Ur Specific [place] 1.010 (1.005-1.030) 06/16/16 22:40 Urine Protein NEGATIVE mg/dL (NEGATIVE) 06/16/16 22:40 Urine Glucose (UA) 100 mg/dL (NEGATIVE) H 06/16/16 22:40 Urine Ketones NEGATIVE mg/dL (NEGATIVE) 06/16/16 22:40 Urine Blood TRACE (NEGATIVE) 06/16/16 22:40 Urine Nitrate NEGATIVE (NEGATIVE) 06/16/16 22:40 Urine Bilirubin NEGATIVE (NEGATIVE) 06/16/16 22:40 Urine Urobilinogen 0.2 E.U./dL (0.2 - 1.0) 06/16/16 22:40 Ur Leukocyte Esterase NEGATIVE (NEGATIVE) 06/16/16 22:40 Urine RBC NONE SEEN /hpf (0-5) 06/15/16 05:50 Urine WBC 0-2 /hpf (0-5) 06/15/16 05:50 Ur Epithelial Cells FEW /lpf (FEW) 06/15/16 05:50 Urine Bacteria NONE SEEN /hpf (NONE SEEN) 06/15/16 05:50 Blood Type O POSITIVE 06/17/16 05:58 Antibody Screen NEGATIVE 06/17/16 05:58 Crossmatch See Detail 06/17/16 05:58 - Physical Exam Vitals and I&O: Vital Signs Temp 97.5 F 06/17/16 08:00 Pulse 78 06/17/16 08:22 Resp 19 06/17/16 08:00 BP 144/75 06/17/16 08:22 Pulse Ox 98 06/17/16 08:00 Intake & Output 06/16/16 06/17/16 06/17/16 18:59 06:59 18:59 Intake Total 400 1200 Output Total 600 Balance -200 1200 Intake: Intake, IV Amount 1000 Sodium Chloride 0.45% 1, 1000 000 ml @ 60 mls/hr IV . [id number] [facility] Rx#:[id number] Oral 400 200 Output: Urine 600 Other: # Voids 750 # Bowel Movements 0 Active Medications: Current Medications Acetaminophen (Tylenol) 325 mg PO Q4H PRN PRN Reason: PAIN & FEVER >101 Stop: 08/14/16 17:12 Acetaminophen/Hydrocodone Bitart ([place] 5mg/325mg) 1 tab PO Q4H PRN PRN Reason: Pain (Severe) Stop: 08/14/16 00:02 Al Hydrox/Mg Hydrox/Simethicone (Maalox) 30 ml PO Q6HR PRN PRN Reason: Constipation Stop: 08/14/16 00:02 Albuterol Sulfate (Albuterol 2.5mg/3ml Neb Ud) 2.5 mg IH Q2HR PRN PRN Reason: Shortness of Breath or Wheeze Stop: 08/14/16 00:02 Benazepril HCl (Lotensin) 10 mg PO DAILY [facility] Stop: 08/14/16 08:59 Last Admin: 06/17/16 08:22 Dose: 10 mg Clonidine HCl (Catapres) 0.1 mg PO Q6HR PRN PRN Reason: SBP GREATER THAN 160 Stop: 08/14/16 00:02 Docusate Sodium (Colace) 250 mg PO BID [facility] Stop: 08/16/16 08:59 Last Admin: 06/17/16 08:22 Dose: 250 mg Enoxaparin Sodium (Lovenox) 30 mg SUBQ DAILY [facility] Stop: 08/17/16 08:59 Hydromorphone HCl (Dilaudid) 1 mg IVP Q4HR PRN PRN Reason: breakthrough pain Stop: 08/14/16 17:33 Last Admin: 06/17/16 09:42 Dose: 1 mg Sodium Chloride (Nacl 0.45%) 1,000 mls @ 60 mls/hr IV .[id number] [facility] Stop: 08/14/16 21:59 Last Admin: 06/17/16 03:04 Dose: 60 mls/hr Dextrose/Sodium Chloride (D5-0.9%Ns) 1,000 mls @ 100 mls/hr IV .Q10H [facility] Stop: 08/16/16 11:59 Insulin Aspart (Novolog) 0 units SUBQ ACHS [facility] PRN Reason: Protocol Stop: 08/14/16 07:29 Last Admin: 06/16/16 22:11 Dose: 2 units Levothyroxine Sodium (Synthroid) 0.112 mg PO DAILY [facility] Stop: 08/14/16 08:59 Last Admin: 06/17/16 08:22 Dose: 0.112 mg Magnesium Hydroxide (Milk Of Magnesia) 30 ml PO HS PRN PRN Reason: Constipation Stop: 08/16/16 00:37 Metformin HCl (Glucophage) 1,000 mg PO DAILY [facility] Stop: 08/14/16 08:59 Last Admin: 06/17/16 08:22 Dose: 1,000 mg Morphine Sulfate (Morphine) 2 mg IVP Q2H PRN PRN Reason: Pain (Severe) Stop: 08/14/16 16:27 Last Admin: 06/17/16 08:22 Dose: 2 mg Ondansetron HCl (Zofran) 4 mg IV Q8H PRN PRN Reason: Nausea / Vomiting Stop: 08/14/16 00:02 Zolpidem Tartrate (Ambien) 10 mg PO HS PRN PRN Reason: Insomnia Stop: 08/14/16 00:02 General: alert HEENT: NC/AT, PERRLA Neck: Supple Lungs: CTAB Cardiovascular: RRR, Normal S1, Normal S2, without murmur Abdomen: soft non-tender Extremities: clear Internal Medicine Assmt/Plan - Assessment Assessment: HIP FRACTURE HTN DM-2 MORBID OBESITY - Plan Plan: ORIF TODAY AT 5PM NPO FOR NOW IVF FOR HYDRATION PAIN MGMT
--- NOTE | 2016-06-17 12:05 | Diagnostic Imaging Report ---
Bilateral carotid Doppler ultrasound exam HISTORY: Dizziness Sonographic sector images were obtained through the carotid bifurcation regions bilaterally. Associated Doppler data was obtained. The exam the right side demonstrates mild intimal thickening throughout the bifurcation region. No significant focal atherosclerotic plaque is seen. Antegrade vertebral artery flow. Loss of these and flow ratios are normal (ICC/CCA equals 0.67). The exam the left side demonstrates generalized intimal thickening and mild atherosclerotic plaque in the carotid bulb region. No significant narrowing or stenosis. Antegrade vertebral artery flow. Velocities and flow ratios are normal (ICA/CCA equals 0.73). IMPRESSION: 1. No evidence of hemodynamically significant atherosclerotic vascular disease
--- NOTE | 2016-06-17 14:00 | Consultation ---
HEMATOLOGY AND ONCOLOGY CONSULTATION REFERRING PHYSICIAN: Dr. Curtis. REASON FOR CONSULTATION: Breast cancer. HISTORY OF PRESENT ILLNESS: The patient is a 66-year-old female who was diagnosed with breast cancer and underwent right mastectomy followed by radiation therapy and chemotherapy and on hormone therapy for 5 years that was completed about 3 years ago. The patient had a suffered a fall and fracture of the left femur; therefore admitted and seen by the orthopedic doctor. Imaging from [facility] was suspicious of pathological fracture. Per my discussion with the son, there was no evidence of metastatic disease diagnosed in the past. MEDICATIONS: Tylenol, [place], Lotensin, Catapres, Dilaudid, Synthroid. PAST MEDICAL HISTORY: Diabetes, hypertension, breast cancer. PHYSICAL EXAMINATION: GENERAL: Awake, alert, oriented. VITAL SIGNS: Stable. LYMPHATICS: No peripheral lymphadenopathy. BREASTS: Right mastectomy, left breast unremarkable. No axillary adenopathy. ABDOMEN: Soft. EXTREMITIES: Left extremity to traction with external rotation. No bleeding from any site. LABORATORY DATA: Chemistry and CBC are unremarkable. PT, PTT were also unremarkable. ASSESSMENT: History of right breast cancer status post mastectomy and radiation and chemotherapy and hormone therapy. There is no diagnosis of metastatic disease and there is suspicion of pathological fracture. I recommended to proceed with open reduction internal reduction as planned and obtain bone biopsy and will obtain CA27-29 marker level and liver functions. Also, start prophylactic anticoagulation for the high risk thrombosis in this patient. Thank you, Dr. Curtis for the opportunity to participate in the care of this interesting case. JOB# [id number]
[2016-06-17 15:05] LABS: URINE BACTERIA OCCASIONAL /hpf (NONE SEEN); URINE EPITHELIAL CELLS OCCASIONAL /lpf (FEW); URINE RBC NONE SEEN /hpf (0-5); URINE WBC NONE SEEN /hpf (0-5)
[2016-06-18] MEDS ORDERED: Enoxaparin 30 mg/0.3 mL 0.3mL Syr SUBQ SCH (09:00)
[2016-06-18 16:12] LABS: CA 15-3 AG (BREAST) 25.6 U/mL (0.0-25.0)
--- NOTE | 2016-06-24 10:56 | Consultation ---
I was asked to see this patient at the [facility] by Dr. Nj Curtis. This patient gives a history that she fell and she broke her left hip. She could not move the neck. It was painful, swollen, and I saw her on 06/16/2016, but she was already there since 06/14/2016. They were trying to make an attempt to get somebody to see this patient. They could not do it and then they called me and I saw her over there at the [facility]. I discussed with the family and explained to them that this was on the x-ray as I have seen it subtrochanteric fracture on the left femur which was markedly displaced. It will require open reduction and internal fixation of the fracture and all the lab work was done and also medically. I asked Dr. Nj Curtis who saw her and he medically cleared her for the operation. This patient had been seen by the oncologist and he also medically cleared because it was 8 years before that she had any cancer, but this was not a secondary and the x-ray of the hip, which were done, did not show that there were any spread of the cancer. It was a good bone and then there was a subtrochanteric fracture. She is a 66-year-old female and her telephone number is [phone]. PHYSICAL EXAMINATION: HEENT: She was normocephalic. Normal eye movements. Normal ears, nose, and throat. No retinopathy. LUNGS: Clear. No crepitus. No rhonchi. CARDIOVASCULAR: First and second sound, no . ABDOMEN: Soft and normal. No organomegaly. No flank tenderness. Passing urine normally. EXTREMITIES: Did not have any other injury except this subtrochanteric fracture of the femur on the left side. She was scheduled for the operation for Friday morning at the [facility], but then, I was informed that the insurance called and canceled the operation when all the preparations have been made and the orders have been placed for all the instruments in OR and everything. So then, this patient's insurance decided to transfer this patient to some other hospital and therefore this operation was canceled and the operation was not done, but I saw this patient and I did ____ explained to the family and also I saw her the second day for the consent for the operation and making the arrangements for the operation after discussing with the family. JOB# [id number]
--- NOTE | 2016-07-03 03:16 | Discharge Summary ---
Dictating for Dr. Nj Curtis. FINAL DIAGNOSES: Hip fracture, hypertension, diabetes and morbid obesity. HISTORY OF PRESENT ILLNESS: This is a 66-year-old female who is a direct admission from [facility]. According to the daughter at bedside, the patient was just reaching over table to grab something and the patient suddenly slipped and fell on her hip. According to the daughter, the patient has been complaining of ____ during this week. The patient has recently had ____ [facility] in 06/10/2016, due to left hip pain. The patient was prescribed tramadol p.o. and x-rays were taken. There is no fracture. Also according to the daughter, the patient has been in breast cancer remission for 8 years. She stated that the [facility] doctor explained to her that this may be a questionable cancer. PHYSICAL EXAMINATION: GENERAL: The patient is well developed, well nourished, in no acute distress. VITAL SIGNS: Stable. HEENT: Head is normocephalic and atraumatic. NECK: Supple. No mass. LUNGS: Clear. CARDIOVASCULAR: Heart is regular rate and rhythm. No murmurs or gallops. ABDOMEN: Soft, nontender and nondistended. Positive bowel sounds in all 4 quadrants. HOSPITAL COURSE: During the hospital stay, the patient was admitted to the telemetry unit. The patient had a carotid artery ultrasound. Impression is no evidence of hemodynamically significant atherosclerotic vascular disease. Also a chest x-ray was done and the impression is no acute disease. The patient had a consultation with Dr. Vázquez, but due to insurance purposes, the patient had to be transferred to [facility] for surgery. The patient was admitted under the care of Dr. Archer. CONDITION UPON DISCHARGE: Fair. DISPOSITION: [facility]. JOB# [id number]
== END 2016-06-17 18:10 | disposition short-term general hospital (02) | DRG 536 ==
LOC: MSI 23:23
PROVIDERS: ADMIT Internal Medicine; ATTEND Internal Medicine
DX: S72.22XA Displaced subtrochanteric fracture of left femur, initial encounter for closed fracture (principal); D68.69 Other thrombophilia; E66.01 Morbid (severe) obesity due to excess calories; I10 Essential (primary) hypertension; E11.9 Type 2 diabetes mellitus without complications; W01.0XXA Fall on same level from slipping, tripping and stumbling without subsequent striking against object, initial encounter; Y93.89 Activity, other specified; Y92.89 Other specified places as the place of occurrence of the external cause; Y99.8 Other external cause status; Z88.6 Allergy status to analgesic agent; Z68.31 Body mass index [BMI] 31.0-31.9, adult; Z85.3 Personal history of malignant neoplasm of breast; Z90.11 Acquired absence of right breast and nipple; Z92.21 Personal history of antineoplastic chemotherapy; Z90.49 Acquired absence of other specified parts of digestive tract
CPT/HCPCS: 36415-UA; 71010-TC; 80048-TC; 80053-TC; 80076-TC; 81001-TC; 82948-90; 83036-90; 83735-TC; 83880-TC; 84443-TC; 85025-TC; 85610-TC; 86300-90; 86304-90; 86850-TC; 86900-TC; 86901-TC; 86922-TC; 93005; 93880-TC; 94760; J1170; J1644; J1815; J2270; J7042; Z7610